=== PATIENT | male | born 2000 | race African-American/Black ===

== ENCOUNTER 2025-02-03 09:13 | Emergency (ER) | payer SELFPAY ==
[2025-02-03 09:18] VITALS: BP 146/91
--- NOTE | 2025-02-03 11:09 | ED.MUSCINJ ---
HPI-Injury
General
Chief Complaint: Musculo-Skeletal Complaint
Source: patient
Exam Limitations: none
Time Seen by Provider: 02/03/25 10:48
History of Present Illness-Injury
Initial Injury comments:
24-year-old male presents complaining of right posterior ankle pain. He also notes sensation of weakness to the right foot. This started yesterday. He was playing flag football and felt like something hit him in the back of the ankle. Since then
he has not been able to bear weight on his right foot. No other complaints at this time
Phy Exam
Physical Exam
Physical Exam:
General: Well-appearing male no acute distress
Musculoskeletal exam: Right ankle tender posteriorly. The Achilles tendon is palpated and there is a soft spot just proximal to the insertion point. This is different than the contralateral side. He has no ability to plantarflex his right foot.
Skin is intact
Injury Course
Orders/Labs/Results
Orders:
Orders
02/03/25 09:14
Ankle, Right 3 view CR [CR Ankle - Right Min 3 Views *] Urgent
Comment:
Reason For Exam: ankle pain
02/03/25 11:05
Ibuprofen [Motrin] 600 mg PO NOW STA
02/03/25 11:07
Ortho Boot Right- Treatment ONCE
Short or tall?: Tall
MDM/Problems Addressed
Differential Diagnosis Includes:
Right ankle dysfunction and discomfort. Suspect Achilles tendon injury possible tear secondary to inability to plantarly flex his foot. X-rays show no bony abnormality. Question abnormality of the Achilles tendon shadow. Patient be placed in an
orthopedic boot and will be advised follow-up with orthopedics to further evaluate
*Critical Care Note
Total Time (30-74mins, 75-104mins- exclusive of procedures): Not Applicable
ED Attending Note
-
Portions of this chart may have been created with voice recognition software.� Occasional wrong word or��sound alike� substitutions may have occurred due to the inherent limitations of voice recognition software.
Discharge Plan
Departure
Patient Disposition: Home (Routine Discharge)
Date of Disposition: 02/03/25
Time of Disposition: 11:11
Patient with high blood pressure during this ER visit?: No
Discharge Problem:
Achilles rupture, right
Instructions: Muscle and Bone Pain (DC)
Prescriptions:
No Action
No Meds [No Current Medications]
0
Referrals:
Jhonathan Sparrow MD [Family Provider] -
Nico Moralez MD [Active] -
Activity Restrictions/Additional Instructions:
Use boot for ambulation. Elevate for swelling. Use ibuprofen or Tylenol for pain. Follow-up with orthopedics for further evaluation
Interventions
Interventions:
*Risk Screen - Suicide Last Done: 02/03/25 09:18
*Neglect/Abuse Screening Last Done: 02/03/25 09:18
*ED- Fall Risk Assessment Last Done: 02/03/25 09:18
Discharge Date and Time
Print Language: SINHALA
== END 2025-02-03 11:35 | disposition home or self-care (01) ==
LOC: EMR 09:13
PROVIDERS: EMERGENCY PHYSICIAN Emergency Medicine; FAMILY PHYSICIAN Internal Medicine
DX: S86.011A Strain of right Achilles tendon, initial encounter (principal); W22.8XXA Striking against or struck by other objects, initial encounter; Y93.62 Activity, american flag or touch football
CPT/HCPCS: 99283; 73610